=== PATIENT | female | born 1985 | race Asian ===

== ENCOUNTER 2019-09-12 09:45 | Outpatient (RCR) | payer OTHER, SELFPAY ==
--- NOTE | 2019-09-04 17:48 | PT.OIE ---
Current Diagnoses Benign paroxysmal vertigo, right ear (09/04/19) Dizziness and giddiness (09/04/19) Visit Care Team Role Provider Type Cris Mcbride MD Primary Care Provider Non-Staff Specialty: Medical Address: [address] [place] [address], [id number] Email: Benji Samuesl MD Attending Provider Physician Referring Provider Specialty: Ear, Nose, Throat Address: [address] [place] [address], [address] Email: [email or web address] Physical Therapy Initial Evaluation PT-OP-A Visit Information Start: 09/04/19 14:42 Freq: Status: Active Protocol: Document 09/04/19 12:00 DCW (Rec: 09/04/19 15:23 DCW [id number]) Out-Patient Physical Therapy Visit Information Visit Information Visit Type Initial Evaluation Visit Start Time 12:00 Visit Stop Time 12:55 Total Visit Minutes 55 Visit Number 1 Number of DATA CENTER PROJECT MANAGER Visits 0 Evaluation Information Evaluation Date 09/04/19 PT-OP-B Current Condition Start: 09/04/19 14:42 Freq: Status: Active Protocol: Document 09/04/19 12:00 DCW (Rec: 09/04/19 15:23 DCW [id number]) Current Condition History of Current Condition Onset Date Three month history Current Complaints Dizziness, aural fullness, Tinnitus, Otalgia History of Current Condition PT is a 34 year old female with a three month history of dizziness, R tinnitus, R otalgia, R aural fullness, and a sensation of heaviness in her right eye. Pt notes that the first time she noticed it was in May, and she noticed a little dizziness in the morning, but it went away, she was able to perform her normal activities, went to the gym, and that evening when she got home and laid down on her right side, she experienced severe vertigo for reportedly 15 minutes. She then turned to her left side, which improved, but did not eliminate, her symptoms, and she was able to go to sleep. Since this time, she has had fairly constant symptoms of dizziness/imbalance, as well as right-sided aural fullness, tinnitus, otalgia, and heaviness in her eye. Pt notes it is improved, but still present, when laying on her left side or standing up, and worsened when on her right side. After five days, pt reports she went to the ED, had a negative CT scan, and was referred to Dr Samuels and [facility], who then referred her for vestibular rehabilitation. Pt reports that her ER doctor thought she had BPPV, and referred her to internet resources to self- perform a half-somersault maneuver and Estrella maneuver. Pt reports these made her feel worse, she she stopped performing them. Treatment Goals Patient/Caregiver Goals Pt's goal is for the symptoms to disappear and to feel comfortable again. PT-OP-C Subjective Start: 09/04/19 14:42 Freq: Status: Active Protocol: Document 09/04/19 12:00 DCW (Rec: 09/04/19 15:23 DCW [id number]) Patient Questionnaires Dizziness Handicap Inventory DHI Score 40% DHI Functional Impairment 40 to 59% Impaired (Score 40- 59) PT-OP-H Neuro Start: 09/04/19 14:42 Freq: Status: Active Protocol: Document 09/04/19 12:00 DCW (Rec: 09/04/19 15:23 DCW [id number]) Coordination Evaluation Upper Extremity Tests Right Finger to Nose Test Normal Performance Finger to Therapist's Finger Test Normal Performance Finger to Finger Test Normal Performance Alternate Nose to Finger Test Normal Performance Finger Opposition Test Normal Performance Pronation/Supination Test Normal Performance Left Finger to Nose Test Normal Performance Finger to Therapist's Finger Test Normal Performance Finger to Finger Test Normal Performance Alternate Nose to Finger Test Normal Performance Finger Opposition Test Normal Performance Pronation/Supination Test Normal Performance Lower Extremity Tests Right Heel on Schmidt Test Normal Performance Foot Tapping Test Normal Performance Left Heel on Schmidt Test Normal Performance Foot Tapping Test Normal Performance PT-OP-O Vestibular Start: 09/04/19 14:42 Freq: Status: Active Protocol: Document 09/04/19 12:00 DCW (Rec: 09/04/19 15:23 DCW [id number]) Vestibular Assessment Auditory Tests Cody Test Negative Rinne Test Negative Air Conduction Results Equal Visual Testing Smooth Pursuits Horizontal Negative Smooth Pursuits Vertical Negative Saccades Horizontal Negative Gaze Evoked Nystagmus With Fixation Positive Heave Test Negative Thrust Head Negative Spontaneous Nystagmus Positive Positional Testing Jazzy-Hallpike Positive Left,Positive Right Rolling Test Positive Left,Positive Right Comments Vestibular Comments Pt displayed what appeared to be square-wave jerks with all positional testing and just sitting on the table with fixation. Unable to test without fixation due to mechanical issues with the Frenzel lenses. Eyes movements may have been slightly worse during R roll test, with pt complaints of increased subjective symptoms. PT-OP-Q Treatments Start: 09/04/19 14:42 Freq: Status: Active Protocol: Document 09/04/19 12:00 DCW (Rec: 09/04/19 15:23 DCW [id number]) Canalithic Repositioning BPPV Treatment Gufoni Affected Canal(s) R Horizontal? Reps 1 PT-OP-T Assessment and Plan Start: 09/04/19 14:42 Freq: Status: Active Protocol: Document 09/04/19 12:00 DCW (Rec: 09/04/19 15:23 DCW [id number]) Physical Therapy Assessment Rehab Potential Rehabilitation Potential Fair Evaluation Complexity Number of Personal Factors/Comorbidities 0 Number of Body Systems Impaired 3 Clinical Presentation at Evaluation Unstable Impairments Impairments Balance,Coordination, Vestibular,Visual Motor Goals Three Impairment Pt displays a constant horizontal square-wave jerk in all positions C4 Planner Goal (LTG) Pt to show decrease in frequency of square-wave jerks to <15/min LTG Duration 10/04/19 Two Impairment Pt scores 40% dysfunction on Dizziness Handicap Index C4 Planner Goal (LTG) Pt to score <20% dysfunction on DHI LTG Duration 10/04/19 One Impairment Pt has worsening symptoms when lying on R side C4 Planner Goal (LTG) Pt to report no worsening symptoms with changes in position LTG Duration 10/04/19 Assessment Summary Assessment Pt presents with complaints of dizziness/imbalance, as well as right-sided aural fullness, tinnitus, otalgia, and heaviness in her eye. Prior to any positional testing, pt displayed a notable square- wave jerk with fixation present at baseline. Unfortunately, due to equipment malfunction, pt was unable to be tested without fixation. Square-wave jerks were present with all positional testing, however they increased in severity during right roll test, and pt complained of an increase in subjective symptoms of dizziness and right-sided pressure. With the horizontal movement of pt's eyes, as well as the inability to measure the speed of her eye movement, it may be possible that what looked like square-wave jerks were geotropic or ageotropic nystagmus with a faster-than usual slow-phase, and with the sustained beating in R roll test position and beating in sitting, could possibly be indicative of a right horizontal canal cupulolithiasis, although this would all be fairly unlikely. Square-wave jerks can additionally just be present in the general population, and their presence is not necessarily indicative of underlying disorders, however they are much more likely to be found with no cause in the elderly population. Square wave jerks can also be a sign of a central disorder, and although pt has already had a negative CT scan, would likely benefit from further imaging with an MRI, as well as further vestibular testing. Additionally, a VNG would be better able to measure the speed and severity of the eye movements, which would help DDx. Recommend pt return to vestibular therapy for further testing, however also recommend pt schedule follow- up with ENT. Physical Therapy Plan Frequency and Duration Frequency of Treatment 2x/Week Duration of Treatment 5 weeks Plan of Care Start Date 09/04/19 Plan of Care End Date 10/09/19 Therapeutic Interventions Therapeutic Interventions Balance Training,Canalithic Repositioning,Manual Therapy, Vestibular Rehabilitation Next Visit Focus/Plan Next Note Type Treatment Note Next Visit Plan Further vestibular testing, CRM as indicated.
--- NOTE | 2019-09-04 17:52 | PT.OPPOC ---
Physical, Occupational & Speech Therapy At [facility] Current Diagnoses Benign paroxysmal vertigo, right ear (09/04/19) Dizziness and giddiness (09/04/19) Visit Care Team Role Provider Type Cris Mcbride MD Primary Care Provider Non-Staff Specialty: Medical Address: [address] [place] [address], [id number] Email: Benji Samuels MD Attending Provider Physician Referring Provider Specialty: Ear, Nose, Throat Address: [address] [place] [address], [address] Email: [email or web address] Plan Of Care PT-OP-T Assessment and Plan Start: 09/04/19 14:42 Freq: Status: Active Protocol: Document 09/04/19 12:00 DCW (Rec: 09/04/19 15:23 DCW [id number]) Physical Therapy Assessment Rehab Potential Rehabilitation Potential Fair Evaluation Complexity Number of Personal Factors/Comorbidities 0 Number of Body Systems Impaired 3 Clinical Presentation at Evaluation Unstable Impairments Impairments Balance,Coordination, Vestibular,Visual Motor Goals Three Impairment Pt displays a constant horizontal square-wave jerk in all positions Linen Sorter Goal (LTG) Pt to show decrease in frequency of square-wave jerks to <15/min LTG Duration 10/04/19 Two Impairment Pt scores 40% dysfunction on Dizziness Handicap Index Assisted Goal (LTG) Pt to score <20% dysfunction on DHI LTG Duration 10/04/19 One Impairment Pt has worsening symptoms when lying on R side Linen Sorter Goal (LTG) Pt to report no worsening symptoms with changes in position LTG Duration 10/04/19 Assessment Summary Assessment Pt presents with complaints of dizziness/imbalance, as well as right-sided aural fullness, tinnitus, otalgia, and heaviness in her eye. Prior to any positional testing, pt displayed a notable square- wave jerk with fixation present at baseline. Unfortunately, due to equipment malfunction, pt was unable to be tested without fixation. Square-wave jerks were present with all positional testing, however they increased in severity during right roll test, and pt complained of an increase in subjective symptoms of dizziness and right-sided pressure. With the horizontal movement of pt's eyes, as well as the inability to measure the speed of her eye movement, it may be possible that what looked like square-wave jerks were geotropic or ageotropic nystagmus with a faster-than usual slow-phase, and with the sustained beating in R roll test position and beating in sitting, could possibly be indicative of a right horizontal canal cupulolithiasis, although this would all be fairly unlikely. Square-wave jerks can additionally just be present in the general population, and their presence is not necessarily indicative of underlying disorders, however they are much more likely to be found with no cause in the elderly population. Square wave jerks can also be a sign of a central disorder, and although pt has already had a negative CT scan, would likely benefit from further imaging with an MRI, as well as further vestibular testing. Additionally, a VNG would be better able to measure the speed and severity of the eye movements, which would help DDx. Recommend pt return to vestibular therapy for further testing, however also recommend pt schedule follow- up with ENT. Physical Therapy Plan Frequency and Duration Frequency of Treatment 2x/Week Duration of Treatment 5 weeks Plan of Care Start Date 09/04/19 Plan of Care End Date 10/09/19 Therapeutic Interventions Therapeutic Interventions Balance Training,Canalithic Repositioning,Manual Therapy, Vestibular Rehabilitation Next Visit Focus/Plan Next Note Type Treatment Note Next Visit Plan Further vestibular testing, CRM as indicated. Plan of Care Dates Plan of Care Start Date 09/04/19 Plan of Care End Date 10/09/19 Electronically Signed by: Tom Ghosh, PT 09/04/19 [id number] Please Sign and Return: I have reviewed this Plan of Care and certify that the skilled therapy services above are required to meet the patient?s needs. Physician Signature Date Printed Name and Credentials Clinical Instructor Signature Printed Name and Credentials
--- NOTE | 2019-09-12 10:44 | PT.OTN ---
Current Diagnoses Benign paroxysmal vertigo, right ear (09/12/19) Physical Therapy Treatment Note PT-OP-A Visit Information Start: 09/04/19 14:42 Freq: Status: Active Protocol: Document 09/12/19 09:48 DCW (Rec: 09/12/19 10:41 DCW [id number]) Out-Patient Physical Therapy Visit Information Visit Information Visit Type Treatment Note Visit Start Time 09:48 Visit Stop Time 10:30 Total Visit Minutes 42 Visit Number 2 Number of DOCTOR OF DENTAL MEDICINE Visits 0 Evaluation Information Evaluation Date 09/04/19 PT-OP-B Current Condition Start: 09/04/19 14:42 Freq: Status: Active Protocol: Document 09/04/19 12:00 DCW (Rec: 09/04/19 15:23 DCW [id number]) Current Condition History of Current Condition Onset Date Three month history Current Complaints Dizziness, aural fullness, Tinnitus, Otalgia History of Current Condition PT is a 34 year old female with a three month history of dizziness, R tinnitus, R otalgia, R aural fullness, and a sensation of heaviness in her right eye. Pt notes that the first time she noticed it was in May, and she noticed a little dizziness in the morning, but it went away, she was able to perform her normal activities, went to the gym, and that evening when she got home and laid down on her right side, she experienced severe vertigo for reportedly 15 minutes. She then turned to her left side, which improved, but did not eliminate, her symptoms, and she was able to go to sleep. Since this time, she has had fairly constant symptoms of dizziness/imbalance, as well as right-sided aural fullness, tinnitus, otalgia, and heaviness in her eye. Pt notes it is improved, but still present, when laying on her left side or standing up, and worsened when on her right side. After five days, pt reports she went to the ED, had a negative CT scan, and was referred to Dr Samuels and [facility], who then referred her for vestibular rehabilitation. Pt reports that her ER doctor thought she had BPPV, and referred her to internet resources to self- perform a half-somersault maneuver and Estrella maneuver. Pt reports these made her feel worse, she she stopped performing them. Treatment Goals Patient/Caregiver Goals Pt's goal is for the symptoms to disappear and to feel comfortable again. PT-OP-C Subjective Start: 09/04/19 14:42 Freq: Status: Active Protocol: Document 09/12/19 09:48 DCW (Rec: 09/12/19 10:41 DCW [id number]) OP-PT Subjective Patient Comments Patient Comments Pt notes she is still getting the same symptoms, she reports that they might be less severe, or she may just have gotten used to it. PT-OP-H Neuro Start: 09/04/19 14:42 Freq: Status: Active Protocol: Document 09/04/19 12:00 DCW (Rec: 09/04/19 15:23 DCW [id number]) Coordination Evaluation Upper Extremity Tests Right Finger to Nose Test Normal Performance Finger to Therapist's Finger Test Normal Performance Finger to Finger Test Normal Performance Alternate Nose to Finger Test Normal Performance Finger Opposition Test Normal Performance Pronation/Supination Test Normal Performance Left Finger to Nose Test Normal Performance Finger to Therapist's Finger Test Normal Performance Finger to Finger Test Normal Performance Alternate Nose to Finger Test Normal Performance Finger Opposition Test Normal Performance Pronation/Supination Test Normal Performance Lower Extremity Tests Right Heel on Schmidt Test Normal Performance Foot Tapping Test Normal Performance Left Heel on Schmidt Test Normal Performance Foot Tapping Test Normal Performance PT-OP-O Vestibular Start: 09/04/19 14:42 Freq: Status: Active Protocol: Document 09/12/19 09:48 DCW (Rec: 09/12/19 10:41 DCW [id number]) Vestibular Assessment Visual Testing Gaze Evoked Nystagmus With Fixation SWJ Gaze Evoked Nystagmus Without Fixation SWJ Cover/Uncover Test WNL Emanuel String Test Impaired Convergence Test WNL DVA (Line Degradation) 4 Vasalva Test Negative Head Shake SWJ Spontaneous Nystagmus Positive Vestibular Function Tests Fukuda Test WNL Comments Vestibular Comments Testing gaze evoked nystagmus, square-wave jerks with and without fixation, no change in intensity PT-OP-Q Treatments Start: 09/04/19 14:42 Freq: Status: Active Protocol: Document 09/12/19 09:48 DCW (Rec: 09/12/19 10:41 DCW [id number]) Neuro Re-Education Treatment Other Activities Testing Comments Vestibular testing PT-OP-T Assessment and Plan Start: 09/04/19 14:42 Freq: Status: Active Protocol: Document 09/12/19 09:48 DCW (Rec: 09/12/19 10:41 DCW [id number]) Physical Therapy Assessment Impairments Impairments Balance,Coordination, Vestibular,Visual Motor Goals Three Impairment Pt displays a constant horizontal square-wave jerk in all positions Lock Maintenance Supervisor Goal (LTG) Pt to show decrease in frequency of square-wave jerks to <15/min LTG Duration 10/04/19 Two Impairment Pt scores 40% dysfunction on Dizziness Handicap Index Lock Maintenance Supervisor Goal (LTG) Pt to score <20% dysfunction on DHI LTG Duration 10/04/19 One Impairment Pt has worsening symptoms when lying on R side Lock Maintenance Supervisor Goal (LTG) Pt to report no worsening symptoms with changes in position LTG Duration 10/04/19 Assessment Summary Assessment Pt testing still not suggestive of a vestibular disorder. Square-wave jerks present both with and without fixation, with no change in severity. These symptoms might be a completely incidental finding, as a segment of the population has them occur naturally, however they may be indicative of a central cause of pt's symptoms, and recommend MRI for improved DDx . Physical Therapy Plan Frequency and Duration Frequency of Treatment 2x/Week Duration of Treatment 5 weeks Plan of Care Start Date 09/04/19 Plan of Care End Date 10/09/19 Therapeutic Interventions Therapeutic Interventions Balance Training,Canalithic Repositioning,Manual Therapy, Vestibular Rehabilitation Next Visit Focus/Plan Next Note Type Treatment Note Next Visit Plan Further vestibular testing, CRM as indicated.
--- NOTE | 2019-12-18 17:38 | PT.OPDS ---
Current Diagnoses Benign paroxysmal vertigo, right ear (09/12/19) Visit Care Team Role Provider Type Cris Mcbride MD Primary Care Provider Non-Staff Specialty: Medical Address: [address] [place] [address], [id number] Email: Benji Samuels MD Attending Provider Physician Referring Provider Specialty: Ear, Nose, Throat Address: [address] [place] [address], [id number] Email: [email or web address] Visit Number Visit Number 2 Discharge Summary PT-OP-B Current Condition Start: 09/04/19 14:42 Freq: Status: Active Protocol: Document 09/04/19 12:00 DCW (Rec: 09/04/19 15:23 DCW [id number]) Current Condition History of Current Condition Onset Date Three month history Current Complaints Dizziness, aural fullness, Tinnitus, Otalgia History of Current Condition PT is a 34 year old female with a three month history of dizziness, R tinnitus, R otalgia, R aural fullness, and a sensation of heaviness in her right eye. Pt notes that the first time she noticed it was in May, and she noticed a little dizziness in the morning, but it went away, she was able to perform her normal activities, went to the gym, and that evening when she got home and laid down on her right side, she experienced severe vertigo for reportedly 15 minutes. She then turned to her left side, which improved, but did not eliminate, her symptoms, and she was able to go to sleep. Since this time, she has had fairly constant symptoms of dizziness/imbalance, as well as right-sided aural fullness, tinnitus, otalgia, and heaviness in her eye. Pt notes it is improved, but still present, when laying on her left side or standing up, and worsened when on her right side. After five days, pt reports she went to the ED, had a negative CT scan, and was referred to Dr Samuels and [facility], who then referred her for vestibular rehabilitation. Pt reports that her ER doctor thought she had BPPV, and referred her to internet resources to self- perform a half-somersault maneuver and Estrella maneuver. Pt reports these made her feel worse, she she stopped performing them. Treatment Goals Patient/Caregiver Goals Pt's goal is for the symptoms to disappear and to feel comfortable again. PT-OP-C Subjective Start: 09/04/19 14:42 Freq: Status: Active Protocol: Document 09/12/19 09:48 DCW (Rec: 09/12/19 10:41 DCW [id number]) OP-PT Subjective Patient Comments Patient Comments Pt notes she is still getting the same symptoms, she reports that they might be less severe, or she may just have gotten used to it. PT-OP-H Neuro Start: 09/04/19 14:42 Freq: Status: Active Protocol: Document 09/04/19 12:00 DCW (Rec: 09/04/19 15:23 DCW [id number]) Coordination Evaluation Upper Extremity Tests Right Finger to Nose Test Normal Performance Finger to Therapist's Finger Test Normal Performance Finger to Finger Test Normal Performance Alternate Nose to Finger Test Normal Performance Finger Opposition Test Normal Performance Pronation/Supination Test Normal Performance Left Finger to Nose Test Normal Performance Finger to Therapist's Finger Test Normal Performance Finger to Finger Test Normal Performance Alternate Nose to Finger Test Normal Performance Finger Opposition Test Normal Performance Pronation/Supination Test Normal Performance Lower Extremity Tests Right Heel on Schmidt Test Normal Performance Foot Tapping Test Normal Performance Left Heel on Schmidt Test Normal Performance Foot Tapping Test Normal Performance PT-OP-O Vestibular Start: 09/04/19 14:42 Freq: Status: Active Protocol: Document 09/12/19 09:48 DCW (Rec: 09/12/19 10:41 DCW [id number]) Vestibular Assessment Visual Testing Gaze Evoked Nystagmus With Fixation SWJ Gaze Evoked Nystagmus Without Fixation SWJ Cover/Uncover Test WNL Emanuel String Test Impaired Convergence Test WNL DVA (Line Degradation) 4 Vasalva Test Negative Head Shake SWJ Spontaneous Nystagmus Positive Vestibular Function Tests Fukuda Test WNL Comments Vestibular Comments Testing gaze evoked nystagmus, square-wave jerks with and without fixation, no change in intensity PT-OP-T Assessment and Plan Start: 09/04/19 14:42 Freq: Status: Active Protocol: Document 12/18/19 17:37 DCW (Rec: 12/18/19 17:38 DCW [id number]) Physical Therapy Assessment Assessment Summary Assessment Pt has not been seen in more than three months, and has no more follow-up visits scheduled. Pt will be discharged from skilled therapy at this time, and will require a new referral in order to continue with vestibular therapy. Physical Therapy Plan Discharge Physical Therapy Discharge Reasons No Longer Attending PT Next Visit Focus/Plan Next Note Type Discharge Summary
== END 2019-12-23 13:57 ==
LOC: PHYS 09:45
PROVIDERS: PCP Family Medicine; Referring Provider Otolaryngology; Visit Provider Otolaryngology
DX: H81.11 Benign paroxysmal vertigo, right ear (principal)
CPT/HCPCS: 95992; 97112; 97161

== ENCOUNTER → 2019-10-02 08:01 | Outpatient (CLI) | payer OTHER, SELFPAY ==
--- NOTE | 2019-10-02 | DI.MRI.S_ITS ---
PROCEDURE: MR BRAIN (IAC) WWO CON INDICATIONS: Dizziness and giddiness TECHNIQUE: Noncontrast sagittal T1 spin echo, axial FLAIR, axial gradient echo, axial diffusion and ADC through the brain. Axial thin-slice 3D CISS, coronal TruFISP, axial T1 spin echo with fat saturation through the internal auditory canals. After the administration of contrast, thin slice axial and coronal T1 spin echo with fat saturation through the internal auditory canals, and axial T1 spin echo with fat saturation through the brain. COMPARISON: None. FINDINGS: Image quality: Excellent. Cerebellopontine angles: No cerebellopontine angle masses. Inner ear structures appear normally formed. No suspicious enhancement in the internal auditory canal or along the course of the 7th cranial nerve. CSF spaces: Ventricles are normal in size and shape. No extra-axial fluid collections. Basal cisterns are patent. Brain: No intracranial bleeds or mass effects. Helm-white matter interface is intact. No abnormal intracranial enhancement. Diffusion weighted images demonstrate no acute ischemic insults. No GRE weighted abnormalities identified in the brain parenchyma. Brainstem appears normal. Pituitary gland and hypothalamus are normal in appearance. Normal intravascular flow voids are present. Skull and face: Calvarial marrow signal is normal. Orbits appear normal. Sinuses: Sinuses and mastoids are clear. IMPRESSION: 1. No intracranial disease process. 2. No abnormal intracranial mass or mass effect. 3. No suspicious postcontrast enhancement. 4. No abnormal intracranial signal. Dictated by: Natalya Staples MD, PhD on 10/02/2019 at 9:16 Approved by: Natalya Staples MD, PhD on 10/02/2019 at 9:20
--- NOTE | 2019-12-19 14:05 | PC.NURSE ---
Report of MRI being faxed to [facility] for continuity of care
== END ==
PROVIDERS: PCP Family Medicine; Referring Provider Otolaryngology; Visit Provider Otolaryngology
DX: R42 Dizziness and giddiness (principal)
CPT/HCPCS: 70553